=== PATIENT | female | born 1960 | race Caucasian/White ===

== ENCOUNTER 2021-07-23 13:02 | Outpatient (CLI) | payer OTHER, SELFPAY ==
--- NOTE | ~2021-07-23 | CT_ITS ---
EXAMINATION: CT sinus wo con DATE: 07/23/2021 13:24 INDICATION: Postnasal drip. Hypertrophy of nasal turbinates. TECHNIQUE: Computed tomography (CT) of the paranasal sinuses was performed without contrast. Iterativ e reconstruction technique was employed. Exam dose: 317.41 mGy-cm total exam DLP. COMPARISON: None FINDINGS: There is rightward deviation of the nasal septum. There is intralamellar cell and wendy bullosa of both middle nasal turbinates. The right middle nasa l turbinate is a broad attachment to the lateral wall of the right lateral nasal cavity, with corresp onding diminished size of the right middle meatus, and there is narrowing and opacification of the ri ght infundibulum and prominent soft tissue opacification and soft tissues septation within the right maxillary antrum. There is prominent patchy opacification of the right ethmoid air cells and complete opacification of the right frontal sinus. The left ostiomeatal unit is patent. The left maxillary antrum, left ethmoid air cells and left front al and sphenoid sinuses are clear. The right sphenoid sinus is clear. The mastoid air cells are normally developed and aerated bilaterally. IMPRESSION: Rightward deviation of nasal septum Intralamellar cell and wendy bullosa of the middle nasal turbinates Asymmetric broad attachment of right middle nasal turbinate to the right lateral nasal cavity wall wi th corresponding diminished size of right middle meatus Narrowing and opacification of right infundibulum Right frontal sinus complete opacification, patchy opacification of right ethmoid air cells and right maxillary sinus Reviewed, dictated and finalized at [facility] Reviewed, dictated and finalized at [facility]. IMPRESSION: Rightward deviation of nasal septum Intralamellar cell and wendy bullosa of the middle nasal turbinates Asymmetric broad attachment of right middle nasal turbinate to the right latera l nasal cavity wall with corresponding diminished size of right middle meatus Narrowing and opacification of right infundibulum Right frontal sinus complete opacification, patchy opacification of right ethmo id air cells and right maxillary sinus
== END 2021-07-23 13:03 | disposition home or self-care (01) ==
LOC: ANHIMG 13:08
PROVIDERS: PCP Nurse Practitioner Family; Visit Provider Otolaryngology
DX: J34.3 Hypertrophy of nasal turbinates (principal); J34.2 Deviated nasal septum; J32.9 Chronic sinusitis, unspecified; Z87.898 Personal history of other specified conditions; R51.9 Headache, unspecified
CPT/HCPCS: 70486

== ENCOUNTER 2021-09-10 09:25 | Outpatient (CLI) | payer OTHER, SELFPAY ==
--- NOTE | 2021-09-10 09:30 | ECG_ITS ---
Measurements Intervals [place] Rate: 73 P: 82 TX: 160 QRS: -27 QRSD: 128 T: -1 QT: 384 QTc: 423 Interpretive Statements SINUS RHYTHM RIGHT BUNDLE BRANCH BLOCK BASELINE ARTIFACT- I, II, III, AVR, AVL, AVF ABNORMAL ECG Electronically Signed On 09-10-2021 9:40:15 CDT by Sami Dennis D.O.
== END 2021-09-10 09:26 | disposition home or self-care (01) ==
LOC: ANHSURGERY 09:28
PROVIDERS: PCP Nurse Practitioner Family; Visit Provider Otolaryngology
DX: I10 Essential (primary) hypertension (principal); Z01.818 Encounter for other preprocedural examination; I45.10 Unspecified right bundle-branch block
CPT/HCPCS: 93005

== ENCOUNTER 2021-09-11 00:32 | Day surgery (SDC) | payer OTHER, SELFPAY ==
[2021-09-07 09:53] VITALS: BMI 42.0
--- NOTE | 2021-09-07 10:10 | PC.NURSE ---
Addendum entered by Ca Gilmore RN 09/07/21 12:46: PT CALLED WITH ADDITIONAL DAILY MEDICATIONS. PT MAY TAKE GABAPENTIN THE MORNING OF SURGERY. Original Note: Report to the Outpatient Waiting Room, entrance under the [place] [facility] located off [facility], at time 0645 on date 09/11/21. OR Time: 0845. - You and your visitor will be asked a series of questions to screen for COVID 19 for your protection. - A mask is required within the hospital. - Only one visitor is allowed at this time. Patient visitors will be guided where to wait when not with patient. Preoperative COVID Testing Requirements: No COVID Test needed if: (proof is required; if not received patient will have Rapid Test prior to entry) - Patient has received COVID Vaccine at least 14 days prior to procedure date or - Patient has positive COVID test result within last 90 days of surgery date. COVID Test needed if above criteria is not met If not COVID vaccinated a COVID test must be conducted within 72 hours of surgery and patient is asked to isolate self from time of testing until procedure. You will go to the [facility] for your COVID testing. The [facility] is located at the corner of [address] [facility]. You will only be called if COVID results are positive and your surgeon may reschedule your elective surgery date. Patients may have clear liquids (water, carbonated beverages, clear teas, apple juice) until 3 hours prior to surgery with a maximum of 20 ounces. - No food from midnight until time of surgery - Infants may have breast milk until 4 hours before surgery, infant formula 6 hours prior to surgery. - Children will be allowed to drink immediately following surgery. If applicable, please bring a bottle or sippy cup to assist with drinking. Juice, water, soda, and popsicles are readily available. For infants on formula, please bring formula the day of surgery. Pacifiers are allowed. Take the following medications with a SIP of water the morning of surgery: BACLOFEN, DULOXETINE Medications to discontinue per physician: N/A Date to take last dose Please no make-up, nail latvian, hairspray, perfume, deodorant, or body powder the day of surgery. No jewelry (including any body piercings) or valuables the day of surgery, leave them at home. Please take a shower or bath the night before, or the morning of, surgery with an antibacterial soap. Wear comfortable, loose fitting clothing. Children are encouraged to wear pajamas. - Jewelry must be removed prior to entering the operating room. Rings and piercings that are not removed may be cut off. - The hospital will not accept responsibility for valuables. - Please leave all valuables, including medications, at home the day of surgery. If you are going home after surgery, a licensed distribution driver must drive you home. - NO public transportation without another adult. - We recommend that an adult stay with you for 24 hours following discharge. - We also recommend that you do not drive, make important decision, drink alcoholic beverages, or take any drugs that were not prescribed by your health care provider for at least 24 hours after your discharge time. For Pediatric surgeries, we recommend two adults accompany the child home (only one inside the building at this time). Follow any additional instructions given to you from your surgeon. Telephone instructions given to RAF ZAPIEN and asked if any additional questions and then verbalized understanding. Patient advised to call surgeon office or pre surgery nurse liaison [phone] if any additional questions.
--- NOTE | 2021-09-09 13:53 | PM.IMHP ---
H&P: HPI History of Present Illness Date/Time: 09/09/21 13:53 Chief Complaint: Nasal obstruction, nasal congestion, septal deviation, right-sided maxillary sinusitis ethmoid sinusitis frontal sinusitis all likely odontogenic Narrative: patient presents for planned surgical procedures no change in symptoms no change in history. Review of Systems Constitutional: Constitutional: Denies fatigue, Denies fever(s) and Denies lethargy Eyes: Eyes: Denies blurry vision and Denies change in vision ENT: Reports as per HPI Cardiovascular: Cardiovascular: Denies chest pain Respiratory: Respiratory: Denies cough Endocrine: Endocrine: Denies fatigue Hematologic/Lymphatic: Hematologic/Lymphatic: Denies easy bleeding, Denies easy bruising and Denies lymphadenopathy Allergic/Immunologic: Allergic/Immunologic: Denies seasonal rhinorrhea COUNT INCLUDES THE [facility] Family History Family History Mother Hypertension Skin cancer Other Bowel cancer Other Asthma Grandparent Uterine cancer Grandparent Cerebrovascular accident Social History Social History Smoking status: Never smoker Second hand tobacco smoke exposure: No Alcohol intake: never Substance use: never Substance use type: does not use Spiritual care concerns: No Meds Home Medications and Allergies Home Medications Medication Instructions Recorded Confirmed Type baclofen 5 mg tablet 10 mg PO TID 06/11/21 09/07/21 History diltiazem HCl 60 mg 60 mg PO TID 06/11/21 09/07/21 History capsule,extended release 12 hr duloxetine 60 mg capsule,delayed 60 mg PO DAILY 06/11/21 09/07/21 History release lisinopril 10 mg tablet 10 mg PO DAILY 06/11/21 09/07/21 History rosuvastatin 10 mg tablet 10 mg PO HS 06/11/21 09/07/21 History gabapentin 300 mg PO TID 09/07/21 09/07/21 History omeprazole 20 mg PO DAILY 09/07/21 09/07/21 History prednisone 10 mg tablet 10 mg PO DAILY #4 tablet 09/07/21 Rx Allergies Allergy/AdvReac Type Severity Reaction Status Date / Time erythromycin base AdvReac Severe nausea Verified 09/07/21 09:50 NSAIDS (Non-Steroidal AdvReac Intermediate Insomnia Verified 09/07/21 09:50 Anti-Inflamma hydroxychloroquine AdvReac Unknown Other Verified 09/07/21 09:50 [From Plaquenil] Exam Const: General: cooperative, healthy appearing, comfortable, well developed and alert HENMT: Head: normal to inspection, normocephalic and atraumatic Ears: hearing grossly normal bilaterally, external ears normal, TM's normal bilaterally and EAC's normal General nose exam: Normal external nose present, Normal nares present, No nasal polyps present, Normal nasal mucous membranes and turbinates present and abnormal septum ( Septal deviation) Face and sinus: normal facial exam Mouth: Yes Normal oral and palatal mucosa present, Yes lip normal, Yes tongue normal, Yes oropharynx normal and Yes moist mucous membranes Teeth and gingiva: dentition normal and gingiva normal Throat: posterior oropharynx normal, tonsils normal and uvula midline Eyes: General: appearance normal, both eyes and all related structures Periorbital: periorbital findings normal Eyelids: eyelids normal Conjunctivae: conjunctivae normal Sclera: sclerae normal Neck: Neck: normal visual inspection, full ROM and no lymphadenopathy Thyroid: thyroid normal Lymphatic: no lymphadenopathy noted Resp: Effort & Inspection: normal respiratory effort and able to speak in complete sentences Cardio: Jugular venous distension: no JVD Neuro: Cranial nerves: Yes CN's II-XII intact bilaterally Assessment and Plan Assessment and plan (1) Facial pain: Code(s): R51.9 - Headache, unspecified Status: Acute Assessment and Plan: plan is for the OR likely septoplasty and turbinate reduction certainly right-sided image guided maxillary antrostomy , right-sided anterior ethmoidec
[2021-09-11] VITALS (7 sets, daily range): BP systolic 143–165; BP diastolic 77–92; PULSE 73–90; RESP 12–20; TEMP 36.2–36.7; O2SAT 96–100; BMI 43.2
--- NOTE | 2021-09-11 07:04 | WPDHPUPDATE1 ---
History and Physical Update Update Date/Time: 09/11/21 07:04 History and Physical has been reviewed, including an updated exam of the patient. There are NO changes in the patient's condition. Risks, benefits, and alternatives have been discussed and questions answered. Patient agrees to proceed with procedure.
[2021-09-11] MEDS: ACETAMINOPHEN 500 MG TABLET 1000 MG PO (07:31)
[2021-09-11] MEDS: LACTATED RINGERS 1,000 ML 30 ML IV CONT (07:41)
--- NOTE | 2021-09-11 08:05 | P.PNAN_ITS ---
Anes - Initial Pre Proc Eval Procedure: Operation Date: 09/11/21 08:45 Proposed Procedures p Image Guided Right Maxillary Antrostomy, Anterior Ethmoidectomy, Frontal Sinusotomy, - Saad Iverson MD s Septoplasty - Saad Iverson MD Date/Time: 09/11/21 08:05 Surgeon: Saad Iverson MD Pre Op Diagnosis: chronic sinusitis Patient Data Age: 61 Gender: F Height: 1.57 m Weight: 107.2 kg Last Vital Signs Temp 36.7 C 09/11/21 07:47 Pulse 73 09/11/21 07:47 Resp 20 09/11/21 07:47 BP 150/82 H 09/11/21 07:47 Pulse Ox 99 09/11/21 07:47 Allergies Allergy/AdvReac Type Severity Reaction Status Date / Time erythromycin base AdvReac Severe nausea Verified 09/11/21 07:24 NSAIDS (Non-Steroidal AdvReac Intermediate Insomnia Verified 09/11/21 07:24 Anti-Inflamma hydroxychloroquine AdvReac Unknown Other Verified 09/11/21 07:24 [From Plaqueni] Home Medications Medication Instructions Recorded Confirmed Type baclofen 5 mg tablet 10 mg PO TID 06/11/21 09/11/21 History diltiazem HCl 60 mg 60 mg PO TID 06/11/21 09/11/21 History capsule,extended release 12 hr duloxetine 60 mg capsule,delayed 60 mg PO DAILY 06/11/21 09/11/21 History release lisinopril 10 mg tablet 10 mg PO DAILY 06/11/21 09/11/21 History rosuvastatin 10 mg tablet 10 mg PO HS 06/11/21 09/11/21 History gabapentin 300 mg PO TID 09/07/21 09/11/21 History omeprazole 20 mg PO DAILY 09/07/21 09/11/21 History prednisone 10 mg tablet 10 mg PO DAILY #4 tablet 09/07/21 09/11/21 Rx Patient hx anesthesia problems: none Family hx anesthesia problems: none Results Review: All pre-operative results and documents have been reviewed as part of the pre-operative evaluation. [facility], [facility] Surgical History Surgical History (Updated 09/11/21 @ 08:08 by Michael Horn MD) H/O arthroscopic knee surgery Family History Family History Mother Hypertension Skin cancer Other Bowel cancer Other Asthma Grandparent Uterine cancer Grandparent Cerebrovascular accident Social History Social History Smoking status: Never smoker Second hand tobacco smoke exposure: No Alcohol intake: never Substance use: never Substance use type: does not use Living arrangements: alone Spiritual care concerns: No Anes - Eval Final PreProcedure Day of Procedure 09/11/21 08:05 Patient weight: morbidly obese Heart: regular rate and rhythm Lungs: clear to auscultation Airway: Mallampati scale class II Neurological: alert and oriented Last oral intake: >/= 8 hours ASA classification: III Emergent: no Anesthetic plan: proceed Anesthesia type and monitoring: general ETT and standard monitoring Results Review: All pre-operative results and documents have been reviewed as part of the pre-operative evaluation. Informed Consent: The patient's anesthetic plan and its attendant risks and benefits were discussed with the patient/family/POA. Questions were solicited and answers provided to the satisfaction of the patient/family/POA.
[2021-09-11] MEDS: ceFAZolin 2 GM/D5W 50 ML 2 GM/50 ML BAG IVPB (08:51)
[2021-09-11] MEDS: OXYMETAZOLINE HCL 0.05% NAS 15 ML BTL (*BKC) 1 SPRAY NASAL (09:27)
[2021-09-11] MEDS: LIDO 1%/EPINEPHRINE 1:100,000 50 ML VIAL INFILTRATE (10:14)
--- NOTE | 2021-09-11 10:48 | W.PM.PROC2 ---
Procedure Note - Detailed Date of Procedure 09/11/21 Pre-op Diagnosis chronic sinusitis, recurrent sinusitis, facial pressure, facial pain, postnasal drip, nasal obstruction, nasal congestion, septal deviation, inferior turbinate hypertrophy Post-op Diagnosis same Procedure Performed 1. Endoscopic assisted septoplasty 2. Inferior turbinate submucosal resection with outfracture, 3. Right middle turbinectomy, 4. Image guided endoscopic right-sided maxillary antrostomy with tissue removal, 5. Right-sided image guided endoscopic anterior ethmoidectomy, 6. Right-sided image guided endoscopic frontal sinusotomy Surgeon Saad Iverson MD Artificial Candy Maker None Indications See above Findings Purulence with the right maxillary sinus polypoid tissue within the right maxillary sinus anterior ethmoids as well as frontal outflow purulence in the right frontal outflows well. Deviated septum corrected inferiorly to allow access also because of nasal obstruction reasons turbinates well reduced no concomitant septal perforations bilaterally exposed orbit as well dehiscent on the right side no violation intraorbital contents. Description of Procedure Patient is correctly identified sent verified the preoperative holding area. Patient brought to the operating. Time-out performed. Image guided initiated. Anesthesia induced endotracheal tube secured taped the left lower lip. Patient prepped and draped for the margin proceeded per aforementioned procedures. Second time-out performed. Afrin-soaked pledgets placed bilaterally in the nasal passages allowed to sit for 5 minutes. Removed. 0 degree endoscope utilized the front. Bilateral nasal passages viewed with the aforementioned findings noted. Given the right-sided septal deviation obstructing the middle meatus/surgical site decision made to perform septoplasty. 10 cc of 1% lidocaine 1 100,000 parts epinephrine injected the bilateral septum and anterior portions of the inferior turbinates. Mann incision made on left with 15 blade. Left-sided mucoperichondrial flap elevated with 7 Micronesian suction. Septum crossed with 15 blade and caudal. Right-sided mucoperichondrial flap elevated. Septum removed combination of osteotome Alisha [place] forceps. Right-sided maxillary antrostomy created with backbiter uncinate middle turbinate noted to be adhered to the lateral wall uncinate removed with backbiter and ethmoid. Middle turbinate removed given that it was scarred down to the lateral nasal wall obstructing the outflow tracts of the anterior sinuses. Turbinate removed straight through cut stump cauterized with Bovie suction electrocautery setting of 15. 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 The orbit was not violated. All the diseased air cells were opened there was polypoid tissue and purulence throughout them. Purulence and polypoid tissue noted in the right maxillary sinus as well. 70 degree scope then utilized to perform the maxilla exceeding the right-sided frontal sinusotomy. Purulence removed. The outflow tract is narrow but was all the way from beak to cribriform to skull base there is not much room and given that the disease tissue below was completely gone the decision was made to not drill it out at this point. Left-sided [place] incision closed with 4 interrupted 5 0 fast gut sutures. Argueta splints placed after being trimmed and sutured anteriorly using a mattress 3-0 nylon suture. Prior to the Argueta splints being placed bilateral nasal passages were suctioned to the choana. Prior to the Argueta splints being placed the bilateral inferior turbinates were entered anteriorly with a 2 mm microdebrider debrided the submucosal plane and outfractured using a [place] elevator. I performed all dictated portions of the procedure. Total blood loss 25
--- NOTE | 2021-09-11 13:00 | SUR.PHASEII ---
1230 PT MEETS ANESTHESIA DISCHARGE CRITERIA. PT DRESSED & WAITING ON RIDE.
== END 2021-09-11 13:29 | disposition home or self-care (01) ==
PROVIDERS: PCP Nurse Practitioner Family; Visit Provider Otolaryngology
PROC: (CPT 31267; principal; 2021-09-11 08:45)
PROC: (CPT 30520; 2021-09-11 08:45)
DX: J32.9 Chronic sinusitis, unspecified (principal); J34.3 Hypertrophy of nasal turbinates; J34.2 Deviated nasal septum; R09.82 Postnasal drip; R51.9 Headache, unspecified; R09.81 Nasal congestion; J34.89 Other specified disorders of nose and nasal sinuses; J33.8 Other polyp of sinus; E66.01 Morbid (severe) obesity due to excess calories; Z68.41 Body mass index [BMI] 40.0-44.9, adult
CPT/HCPCS: 31267; 31254; 31276; 61782; 30520; 30140; A9270; J0690; J1100; J2250; J2405; J2704; J3010; J7120